=== PATIENT | male | born 2000 | race Caucasian/White ===

== ENCOUNTER 2024-11-19 19:28 | Emergency (ER) | payer SELFPAY ==
[2024-11-19 19:41] VITALS: BP 154/109; PULSE 107; RESP 16; TEMP 37.6; O2SAT 98
--- NOTE | 2024-11-19 20:20 | ED_ITS ---
HPI - URI/Sore Throat General Chief Complaint: Upper Respiratory Infection Stated Complaint: bodyaches,cough,nauseated Time Seen by Provider: 11/19/24 20:21 Source: patient, RN notes reviewed and old records reviewed Mode of arrival: ambulatory Limitations: no limitations History of Present Illness HPI Narrative: Patient presents with complaints of flu-like symptoms 3 days. He has been managing his symptoms with [id number] medications. He reports most bothersome symptom is postnasal drip and resulting cough. He denies any shortness of breath. He does report intermittent fevers, well controlled with [id number] medications. He is not in any distress. He voices no other concerns or complaints today. Related Data Allergies Allergy/AdvReac Type Severity Reaction Status Date / Time No Known Allergies Allergy Unknown Verified 11/19/24 19:30 Review of Systems Review of Systems: All systems reviewed & are unremarkable except as noted in HPI and below Constitutional: Constitutional: Reports no additional constitutional complaints, Reports body ache(s), Reports chills, Reports fever(s), Reports headache(s) and Reports lethargy ENT: Reports system reviewed and no additional complaints, except as documented, Reports nasal congestion, Reports nasal discharge, Reports post nasal drip and Reports sore throat Cardiovascular: Cardiovascular: Reports no additional cardiovascular complaints Respiratory: Respiratory: Reports no additional respiratory complaints, Reports cough and Reports wheezing Gastrointestinal: Gastrointestinal: Reports no additional gastrointestinal complaints PMFSH Comments At the time of my signature, I reviewed and agree with the nursing past medical, surgical, social, and family history. There is no relevant family history pertinent to the patient complaint. Exam Const: General: cooperative, no acute distress, alert, awake and uncomfortable Orientation/consciousness: oriented to person, oriented to place and oriented to time HENMT: Head: normal to inspection Ears: TM's normal bilaterally Face/Nose/Sinus: Nasal discharge present clear Mouth: Yes moist mucous membranes Resp: Effort & Inspection: normal respiratory effort and able to speak in complete sentences Auscultation: clear to auscultation bilaterally, no crackles, no rales, no rhonchi and no wheezes Cardio: Palpation: normal PMI Rate: regular rate Rhythm: regular rhythm Heart sounds: S1 normal heart sound present and S2 normal heart sound present Neuro: General: oriented to person, oriented to place and oriented to time Cranial nerves: Yes CN's II-XII intact bilaterally Psych: Appearance: grossly normal Thought process: Normal thought process present Insight: Good insight present (Psych) Judgement: Good judgement present (Psych) Course Course Level of Care: Express Care Visit Vital Signs Vital signs: Vital Signs Temperature 99.6 F 11/19/24 19:41 Pulse Rate 107 H 11/19/24 19:41 Respiratory Rate 16 11/19/24 19:41 Blood Pressure 154/109 H 11/19/24 19:41 Pulse Oximetry 98 11/19/24 19:41 Oxygen Delivery Room Air 11/19/24 19:41 Temperature 99.6 F 11/19/24 19:41 Pulse Rate 107 H 11/19/24 19:41 Respiratory Rate 16 11/19/24 19:41 Blood Pressure 154/109 H 11/19/24 19:41 Pulse Oximetry 98 11/19/24 19:41 Oxygen Delivery Room Air 11/19/24 19:41 Reviewed MDM - URI/Sore Throat MDM Narrative Medical decision making narrative: Positive influenza. Supportive care measures discussed. Patient nontoxic appearing, stable for discharge home. Discharge instructions reviewed with patient, as well as provided in writing per nursing staff. The instructions also include specific and strict return/GO TO THE ER as well as f/u information. All questions have been answered, and the patient deny any further questions with discharge and discharge plan. Some parts of this dictation were generated by voice recognition software and may contain typographical and/or grammatical inaccuracies. Differential Diagnosis Differential diagnosis: Likely upper respiratory infection, otitis media, viral infection and influenza Medical Records Attestation: I reviewed the patient's medical records. Lab Data Attestation: I reviewed the patient's lab results. Labs: Lab Results 11/19/24 Range/Units 20:20 POC Influenza A Ag Positive (Negative) POC Influenza B Ag Negative (Negative) POC SARS CoV-2 Ag Negative (Negative) Discharge Plan Discharge Clinical Impression: Influenza Patient Disposition: Home, Self-Care Condition: Stable Instructions: Antibiotic Form, Influenza (ED) Additional Instructions: Take medications as prescribed. Follow with primary care provider. 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
[2024-11-19 20:24] LABS: EDCOVIDSCREEN Negative (Negative); EDINFLUASCREEN Positive (Negative); EDINFLUBSCREEN Negative (Negative)
== END 2024-11-19 20:33 | disposition home or self-care (01) ==
PROVIDERS: Emergency Provider Nurse Practitioner Family
DX: J10.1 Influenza due to other identified influenza virus with other respiratory manifestations (principal); Z20.822 Contact with and (suspected) exposure to COVID-19
CPT/HCPCS: 87426; 87804; 99213; G0463